=== PATIENT | female | born 1975 | race Caucasian/White ===

== ENCOUNTER 2022-06-11 10:41 | Emergency (ER) | payer OTHER ==
[2022-06-11] MEDS ORDERED: SUBLIMAZE 100 MCG/2 ML IV ONE (10:50)
--- NOTE | 2022-06-11 10:50 | ERPHSYRPT ---
- History of Present Illness Time Seen by Provider: 06/11/22 10:50 Historian: patient Exam Limitations: no limitations Allergies/Adverse Reactions: amoxicillin Allergy (Verified 06/11/22 10:49) ampicillin Allergy (Verified 06/11/22 10:49) - Past Medical History Neurological History: Migraines, Seizures Cardiac History: High Cholesterol, Hypertension Respiratory History: Bronchitis Endocrine Medical History: Diabetes Type II, Hypothyroidism Musculoskeletal History: Arthritis - Departure Referrals: NELLI LERMA MD [Primary Care Provider] - Follow up/PCP as directed
[2022-06-11] MEDS ORDERED: Sodium Chloride 0.9% 1000 ML 1,000 ML IV SCH (11:00)
[2022-06-11] MEDS ORDERED: Sodium Chloride 0.9% 1000 ML 1,000 ML ONE (11:12)
[2022-06-11] MEDS ORDERED: SUBLIMAZE 100 MCG/2 ML ONE (11:12)
[2022-06-11 11:30] LABS: Absolute Neutrophil Ct (ANC) 3.68 x10^3/uL (1.4-6.9); Eosinophil % 7.7 % (0.00-5.0); Eosinophil (Absolute #) 0.58 x10^3/uL (0-0.5); Hemoglobin 13.3 g/dL (12.0-16.0); Lymphocyte (Absolute #) 2.58 x10^3/uL (1.0-4.6); Mean Cell Volume 92.1 fL (78-100); Mean Corpuscular Hemoglobin 29.9 pg (26-32); Mean Corpuscular Hgb Concent. 32.4 g/dL (32-36); Mean Platelet Volume 10.5 fL (7.5-11.0); Monocyte (Absolute #) 0.62 x10^3/uL (0.0-1.3); Monocytes % 8.2 % (0.0-12.0); Neutrophil % 48.5 % (36.0-66.0); Platelet Count 260 x10^3/uL (150-450); Red Blood Count 4.45 x10^6/uL (4.1-5.4); Red Cell Distribution Width 13.1 % (11.5-14.0); White Blood Count 7.6 x10^3/uL (4.0-10.5)
[2022-06-11 11:54] LABS: ALBUMIN 4.4 g/dL (3.5-5.0); ALKALINE PHOSPHATASE 48 U/L (38-126); AMYLASE 88 U/L (30-110); ANION GAP 10.6 MEQ/L (5-15); BLOOD UREA NITROGEN 20 mg/dL (7-17); CHLORIDE 108 mmol/L (98-107); Calcium 9.1 mg/dL (8.4-10.2); Carbon Dioxide 24 mmol/L (22-30); Creatinine 1 0.81 mg/dL (0.52-1.04); EST GLOMERULAR FILTRATION RATE > 60.0 ML/MIN; Glucose 98 mg/dL (74-106); LIPASE 145 U/L (23-300); NT PRO BNP 124 pg/mL (0-450); Potassium 4.6 mmol/L (3.5-5.1); SGOT/AST 35 U/L (14-36); SGPT/ALT 40 U/L (0-35); SODIUM 138 mmol/L (137-145); Total Protein 7.4 g/dL (6.3-8.2)
[2022-06-11 12:17] LABS: Appearance CLEAR (CLEAR); Bilirubin NEGATIVE (NEGATIVE); Epithelial Cells RARE /HPF (FEW); Glucose NEGATIVE (NEGATIVE); Ketones NEGATIVE (NEGATIVE); RBC MODERATE Ery/ul (0-5); WBC 0-2 /HPF (0-5)
[2022-06-11 12:18] LABS: Dipstick done @ ? MAIN LAB; Nitrite NEGATIVE (NEGATIVE); Ph 5.5 (5-6); Protein,Urine Dip NEGATIVE (Negative); Urobilinogen 0.2 mg/dL (0-1)
[2022-06-11 12:19] LABS: Urine Cultured Indicated? NO
[2022-06-11 13:31] VITALS: O2SAT 98
--- NOTE | 2022-06-11 14:25 | ERPHSYRPT ---
- History of Present Illness Time Seen by Provider: 06/11/22 10:50 Historian: patient Exam Limitations: no limitations Patient Subjective Stated Complaint: C/O chest pain that started aroun 0830 or 0900 today. Patient states that the pain awoke her from her sleep. She took one nitro at home prior to coming into the ER. Triage Nursing Assessment: Patient ambulated back to ED; refused a w/c. She is alert and oriented. NO SOB and no cough noted. CLMEONS WNL. Skin tone normal. Physician History: Patient is a 47-year-old white female who presents with a complaint of chest pain going on the left arm without relief with 1 nitroglycerin. She had her last episode of chest pain approximately a week ago she has had no history of CO no catheterization she has had nausea vomiting and shortness of breath she has had some wheezing. She is also a smoker she is hypertensive family history is positive she is diabetic and she has hyperlipidemia. Timing/Duration: today Activities at Onset: none Quality: fullness Location: substernal Chest Pain Radiation: arm Severity of Pain-Max: moderate Severity of Pain-Current: mild Associated Symptoms: nausea, vomiting, shortness of breath, diaphoresis Prior Chest Pain/Cardiac Workup: no prior cardiac workup Nitro Today/Relief: 0.4 mg x 1 Aspirin Treatment Today: no aspirin today Allergies/Adverse Reactions: amoxicillin Allergy (Verified 06/11/22 10:49) ampicillin Allergy (Verified 06/11/22 10:49) Influenza Virus Vaccines Allergy (Verified 06/11/22 11:03) morphine Adverse Reaction (Verified 06/11/22 11:03) Home Medications: Cyclobenzaprine HCl 10 mg [Cyclobenzaprine 10 MG] 10 mg PO TID 06/11/22 [History] Divalproex Sodium [Depakote ER] 500 mg PO BID 06/11/22 [History] Doxepin HCl 10 mg PO HS 06/11/22 [History] Fenofibric Acid (Choline) [Trilipix] 135 mg PO DAILY 06/11/22 [History] Ibuprofen [Advil Migraine] 200 mg PO DAILY PRN PRN 06/11/22 [History] Levothyroxine Sodium [Levothyroxine] 137 mcg PO DAILY 06/11/22 [History] Mag Oxide/D3/Turmeric Rt Xt [Magnesium-Vit D3-Turmeric Tab] 400 mg PO HS 06/11/22 [History] Metformin HCl [Metformin HCl ER] 500 mg PO DAILY 06/11/22 [History] Mv-Mn/Iron/Folic Acid/Herb 190 [Vitamin D3 Complete Caplet] 50,000 iu PO WEEKLY 06/11/22 [History] Nitroglycerin 0.4 mg Tablet [Nitrostat 0.4 MG Tablet] 0.4 mg SL DAILY PRN PRN 06/11/22 [History] Pravastatin Sodium 20 mg PO DAILY 06/11/22 [History] Rizatriptan Benzoate [Rizatriptan] 10 mg PO DAILY PRN PRN 06/11/22 [History] Ropinirole HCl 1 mg PO HS 06/11/22 [History] atenoloL [Atenolol] 25 mg PO DAILY 06/11/22 [History] Hx Tetanus, Diphtheria Vaccination/Date Given: Yes Hx Influenza Vaccination/Date Given: No (Allergy) Hx Pneumococcal Vaccination/Date Given: No Immunizations Up to Date: Yes Travel Risk - International Travel Have you traveled outside of the country in past 3 weeks: No - Coronavirus Screening Are you exhibiting any of the following symptoms?: No Close contact with a COVID-19 positive Pt in past 14-21 Days: No - Vaccine Status Have you recieved a Covid-19 vaccination: No - Review of Systems Constitutional: No Fever, No Chills Eyes: No Symptoms Ears, Nose, & Throat: No Symptoms Respiratory: Cough, No Dyspnea Cardiac: No Chest Pain, No Edema, No Syncope Abdominal/Gastrointestinal: No Abdominal Pain, No Nausea, No Vomiting, No Diarrhea Genitourinary Symptoms: No Dysuria Musculoskeletal: No Back Pain, No Neck Pain Skin: No Rash Neurological: No Dizziness, No Focal Weakness, No Sensory Changes Psychological: No Symptoms Endocrine: No Symptoms All Other Systems: Reviewed and Negative - Past Medical History Neurological History: Migraines, Seizures Cardiac History: High Cholesterol, Hypertension Respiratory History: Bronchitis Endocrine Medical History: Diabetes Type II, Hypothyroidism Musculoskeletal History: Arthritis - Past Surgical History Past Surgical History: Yes Female Surgical History: Section Other Surgical History: Breast biopsies, thyroid removed - Social History Smoking Status: Current every day smoker How long have you smoked: 11 y.o. Exposure to second hand smoke: No Drug Use: none Patient Lives Alone: No - Female History Hx Last Menstrual Period: No longer has these Hx Now: No - Nursing Vital Signs Nursing Vital Signs: Initial Vital Signs Temperature 98.3 F 06/11/22 10:49 Pulse Rate 71 06/11/22 10:49 Respiratory Rate 18 06/11/22 10:49 Blood Pressure 161/98 06/11/22 10:49 O2 Sat by Pulse Oximetry 97 06/11/22 10:49 Pain Scale Pain Intensity 0 - Physical Exam General Appearance: no apparent distress, alert Eye Exam: PERRL/EOMI, eyes nml inspection Ears, Nose, Throat Exam: normal ENT inspection, moist mucous membranes Neck Exam: normal inspection, non-tender, supple, full range of motion Respiratory Exam: normal breath sounds, lungs clear, No respiratory distress Cardiovascular Exam: regular rate/rhythm, normal heart sounds Gastrointestinal/Abdomen Exam: soft, No tenderness, No mass Back Exam: normal inspection, No CVA tenderness, No vertebral tenderness Extremity Exam: normal inspection, normal range of motion Neurologic Exam: alert, oriented x 3, cooperative, normal mood/affect, sensation nml, No motor deficits Skin Exam: normal color, warm, dry SpO2: 98 - Course Nursing assessment & vital signs reviewed: Yes - Radiology Exams Chest X-ray Interpretation: Interpreted by me, Negative Ordered Tests: Active Orders 24 hr Category Date Time Status EKG-ER Only STAT Care 06/11/22 10:50 Active CHEST 1 VIEW (PORTABLE) Stat Exams 06/11/22 10:50 Taken AMYLASE Stat Lab 06/11/22 11:15 Completed CBC W DIFF Stat Lab 06/11/22 11:15 Completed CMP Stat Lab 06/11/22 11:15 Completed D-DIMER QUANTITATIVE Stat Lab 06/11/22 11:15 Completed LIPASE Stat Lab 06/11/22 11:15 Completed Lactic Acid Stat Lab 06/11/22 11:25 Completed NT PRO BNP Stat Lab 06/11/22 11:15 Completed TROPONIN Q4H Lab 06/11/22 11:15 Completed TROPONIN Q4H Lab 06/11/22 13:25 Completed TROPONIN Q4H Lab 06/11/22 19:00 Ordered UA W/RFX CULTURE Stat Lab 06/11/22 11:44 Completed Medication Summary Generic Name Dose Route Start Last Admin Trade Name Freq PRN Reason Stop Dose Admin Sodium Chloride 1,000 mls @ 100 mls/hr 06/11/22 11:00 06/11/22 11:13 Sodium Chloride 0.9% 1000 Ml IV 07/11/22 10:59 100 mls/hr .Q10H MEGHAN Administration Discontinued Medications Generic Name Dose Route Start Last Admin Trade Name Kushal PRN Reason Stop Dose Admin Fentanyl Citrate 50 mcg 06/11/22 10:50 06/11/22 11:13 Fentanyl Citrate 100 Mcg/2 Ml* Vial IV 06/11/22 10:51 50 mcg STAT ONE Administration Fentanyl Citrate Confirm 06/11/22 11:12 Fentanyl Citrate 100 Mcg/2 Ml* Vial Administered 06/11/22 11:13 Dose 100 mcg .ROUTE .[facility] ONE Lab/Rad Data: Laboratory Result Diagrams 06/11/22 11:15 06/11/22 11:15 Laboratory Results 06/11/22 06/11/22 06/11/22 Range/Units 13:25 11:44 11:25 WBC (4.0-10.5) x10^3/uL RBC (4.1-5.4) x10^6/uL Hgb (12.0-16.0) g/dL Hct (35-47) % MCV (78-100) fL MCH (26-32) pg MCHC (32-36) g/dL RDW (11.5-14.0) % Plt Count (150-450) x10^3/uL MPV (7.5-11.0) fL Gran % (36.0-66.0) % Immature Gran % (Auto) (0.00-0.4) % Nucleat RBC Rel Count (0.00-0.1) % Eos # (Auto) (0-0.5) x10^3/uL Immature Gran # (Auto) (0.00-0.03) x10^3u/L Absolute Lymphs (auto) (1.0-4.6) x10^3/uL Absolute Monos (auto) (0.0-1.3) x10^3/uL Absolute Nucleated RBC (0.00-0.01) x10^3u/L Lymphocytes % (24.0-44.0) % Monocytes % (0.0-12.0) % Eosinophils % (0.00-5.0) % Basophils % (0.0-0.4) % Absolute Granulocytes (1.4-6.9) x10^3/uL Basophils # (0-0.4) x10^3/uL D-Dimer (0.0-0.50) mg/L Sodium (137-145) mmol/L Potassium (3.5-5.1) mmol/L Chloride (98-107) mmol/L Carbon Dioxide (22-30) mmol/L Anion Gap (5-15) MEQ/L BUN (7-17) mg/dL Creatinine (0.52-1.04) mg/dL Estimated GFR ML/MIN Glucose (74-106) mg/dL Lactic Acid 1.1 (0.4-2.0) Calcium (8.4-10.2) mg/dL Total Bilirubin (0.2-1.3) mg/dL AST (14-36) U/L ALT (0-35) U/L Alkaline Phosphatase (38-126) U/L Troponin I < 0.012 (0.000-0.034) ng/mL NT-Pro-B Natriuret Pep (0-450) pg/mL Serum Total Protein (6.3-8.2) g/dL Albumin (3.5-5.0) g/dL Amylase (30-110) U/L Lipase (23-300) U/L Urinalys Dipstick Clnc MAIN LAB Urine Color YELLOW (YELLOW) Urine Appearance CLEAR (CLEAR) Urine pH 5.5 (5-6) Ur Specific [place] 1.020 (1.005-1.025) POC Urine Protein Conf NEGATIVE (Negative) Urine Ketones NEGATIVE (NEGATIVE) Urine Nitrite NEGATIVE (NEGATIVE) Urine Bilirubin NEGATIVE (NEGATIVE) Urine Urobilinogen 0.2 (0-1) mg/dL Urine Leukocytes NEGATIVE (NEGATIVE) Urine WBC (Auto) 0-2 (0-5) /HPF Urine RBC (Auto) 3-5 A (0-2) /HPF U Epithel Cells (Auto) RARE (FEW) /HPF Urine Bacteria (Auto) NONE (NEGATIVE) /HPF Urine RBC MODERATE A (0-5) Wilberto/ul Ur Culture Indicated? NO Urine Glucose NEGATIVE (NEGATIVE) mg/dL 06/11/22 06/11/22 06/11/22 Range/Units 11:15 11:15 11:15 WBC (4.0-10.5) x10^3/uL RBC (4.1-5.4) x10^6/uL Hgb (12.0-16.0) g/dL Hct (35-47) % MCV (78-100) fL MCH (26-32) pg MCHC (32-36) g/dL RDW (11.5-14.0) % Plt Count (150-450) x10^3/uL MPV (7.5-11.0) fL Gran % (36.0-66.0) % Immature Gran % (Auto) (0.00-0.4) % Nucleat RBC Rel Count (0.00-0.1) % Eos # (Auto) (0-0.5) x10^3/uL Immature Gran # (Auto) (0.00-0.03) x10^3u/L Absolute Lymphs (auto) (1.0-4.6) x10^3/uL Absolute Monos (auto) (0.0-1.3) x10^3/uL Absolute Nucleated RBC (0.00-0.01) x10^3u/L Lymphocytes % (24.0-44.0) % Monocytes % (0.0-12.0) % Eosinophils % (0.00-5.0) % Basophils % (0.0-0.4) % Absolute Granulocytes (1.4-6.9) x10^3/uL Basophils # (0-0.4) x10^3/uL D-Dimer 0.24 (0.0-0.50) mg/L Sodium 138 (137-145) mmol/L Potassium 4.6 (3.5-5.1) mmol/L Chloride 108 H (98-107) mmol/L Carbon Dioxide 24 (22-30) mmol/L Anion Gap 10.6 (5-15) MEQ/L BUN 20 H (7-17) mg/dL Creatinine 0.81 (0.52-1.04) mg/dL Estimated GFR > 60.0 ML/MIN Glucose 98 (74-106) mg/dL Lactic Acid (0.4-2.0) Calcium 9.1 (8.4-10.2) mg/dL Total Bilirubin 0.30 (0.2-1.3) mg/dL AST 35 (14-36) U/L ALT 40 H (0-35) U/L Alkaline Phosphatase 48 (38-126) U/L Troponin I < 0.012 (0.000-0.034) ng/mL NT-Pro-B Natriuret Pep 124 (0-450) pg/mL Serum Total Protein 7.4 (6.3-8.2) g/dL Albumin 4.4 (3.5-5.0) g/dL Amylase 88 (30-110) U/L Lipase 145 (23-300) U/L Urinalys Dipstick Clnc Urine Color (YELLOW) Urine Appearance (CLEAR) Urine pH (5-6) Ur Specific [place] (1.005-1.025) POC Urine Protein Conf (Negative) Urine Ketones (NEGATIVE) Urine Nitrite (NEGATIVE) Urine Bilirubin (NEGATIVE) Urine Urobilinogen (0-1) mg/dL Urine Leukocytes (NEGATIVE) Urine WBC (Auto) (0-5) /HPF Urine RBC (Auto) (0-2) /HPF U Epithel Cells (Auto) (FEW) /HPF Urine Bacteria (Auto) (NEGATIVE) /HPF Urine RBC (0-5) Wilberto/ul Ur Culture Indicated? Urine Glucose (NEGATIVE) mg/dL 06/11/22 Range/Units 11:15 WBC 7.6 (4.0-10.5) x10^3/uL RBC 4.45 (4.1-5.4) x10^6/uL Hgb 13.3 (12.0-16.0) g/dL Hct 41.0 (35-47) % MCV 92.1 (78-100) fL MCH 29.9 (26-32) pg MCHC 32.4 (32-36) g/dL RDW 13.1 (11.5-14.0) % Plt Count 260 (150-450) x10^3/uL MPV 10.5 (7.5-11.0) fL Gran % 48.5 (36.0-66.0) % Immature Gran % (Auto) 0.3 (0.00-0.4) % Nucleat RBC Rel Count 0.0 (0.00-0.1) % Eos # (Auto) 0.58 H (0-0.5) x10^3/uL Immature Gran # (Auto) 0.02 (0.00-0.03) x10^3u/L Absolute Lymphs (auto) 2.58 (1.0-4.6) x10^3/uL Absolute Monos (auto) 0.62 (0.0-1.3) x10^3/uL Absolute Nucleated RBC 0.00 (0.00-0.01) x10^3u/L Lymphocytes % 34.0 (24.0-44.0) % Monocytes % 8.2 (0.0-12.0) % Eosinophils % 7.7 H (0.00-5.0) % Basophils % 1.3 (0.0-0.4) % Absolute Granulocytes 3.68 (1.4-6.9) x10^3/uL Basophils # 0.10 (0-0.4) x10^3/uL D-Dimer (0.0-0.50) mg/L Sodium (137-145) mmol/L Potassium (3.5-5.1) mmol/L Chloride (98-107) mmol/L Carbon Dioxide (22-30) mmol/L Anion Gap (5-15) MEQ/L BUN (7-17) mg/dL Creatinine (0.52-1.04) mg/dL Estimated GFR ML/MIN Glucose (74-106) mg/dL Lactic Acid (0.4-2.0) Calcium (8.4-10.2) mg/dL Total Bilirubin (0.2-1.3) mg/dL AST (14-36) U/L ALT (0-35) U/L Alkaline Phosphatase (38-126) U/L Troponin I (0.000-0.034) ng/mL NT-Pro-B Natriuret Pep (0-450) pg/mL Serum Total Protein (6.3-8.2) g/dL Albumin (3.5-5.0) g/dL Amylase (30-110) U/L Lipase (23-300) U/L Urinalys Dipstick Clnc Urine Color (YELLOW) Urine Appearance (CLEAR) Urine pH (5-6) Ur Specific [place] (1.005-1.025) POC Urine Protein Conf (Negative) Urine Ketones (NEGATIVE) Urine Nitrite (NEGATIVE) Urine Bilirubin (NEGATIVE) Urine Urobilinogen (0-1) mg/dL Urine Leukocytes (NEGATIVE) Urine WBC (Auto) (0-5) /HPF Urine RBC (Auto) (0-2) /HPF U Epithel Cells (Auto) (FEW) /HPF Urine Bacteria (Auto) (NEGATIVE) /HPF Urine RBC (0-5) Wilberto/ul Ur Culture Indicated? Urine Glucose (NEGATIVE) mg/dL - Progress Progress: unchanged Air Movement: good Blood Culture(s) Obtained: No Antibiotics given: No - Departure Departure Disposition: Home Clinical Impression: Atypical chest pain Condition: Stable Critical Care Time: No Referrals: NELLI LERMA MD [Primary Care Provider] - Follow up/PCP as directed Instructions: Chest Pain (DC)
[2022-06-11 14:27] VITALS: BP 114/63; PULSE 60
--- NOTE | 2022-06-11 18:57 | XRAY ---
Indication: Chest pain. Short of breath. Comparison: None Portable chest inflated and clear with incidental tiny left lung calcified granuloma. Heart not enlarged. Bony thorax intact. Impression: Nonacute chest.
== END 2022-06-11 14:37 | disposition home or self-care (01) ==
LOC: ED 10:41
DX: R07.89 Other chest pain (principal); R11.2 Nausea with vomiting, unspecified; R06.02 Shortness of breath; E78.5 Hyperlipidemia, unspecified; I10 Essential (primary) hypertension; E11.9 Type 2 diabetes mellitus without complications; Z79.84 Long term (current) use of oral hypoglycemic drugs; Z79.899 Other long term (current) drug therapy; Z28.310 Unvaccinated for COVID-19; Z72.0 Tobacco use
CPT/HCPCS: 36415; 71045; 80053; 81015; 82150; 83605; 83690; 83880; 84484; 85025; 85379; 93005; 96374; 99284; J3010